=== PATIENT | female | born 1980 | race Two or more races ===

== ENCOUNTER 2016-09-09 16:29 | Emergency (ER) | payer MEDICAID ==
--- NOTE | 2016-09-09 17:26 | EDPHY ---
H & P Time Seen by Provider: 09/09/16 17:24 HPI/ROS: CHIEF COMPLAINT: Body aches, sore throat HISTORY OF PRESENT ILLNESS: This patient is a 36 year old female who presents to the Emergency Department complaining of diffuse body aches and sore throat beginning yesterday. She also complains of headache, mild fever, and mild dry cough. She has been treating her symptoms with ibuprofen without much improvement. She has a history of recurrent strep infections last year and tells me that she feels like she has strep. Her son is currently sick with influenza confirmed by processing mgr and her daughter was recently diagnosed with strep. REVIEW OF SYSTEMS: Constitutional: +fever, +body aches, no chills Eyes: No visual changes ENT: +sore throat Respiratory: +cough, no shortness of breath Cardiac: No chest pain Gastrointestinal: No nausea, no vomiting, no abdominal pain Genitourinary: No hematuria, no dysuria Musculoskeletal: No leg pain or swelling Skin: No rash Neurological: +headache, no numbness, no weakness Psychiatric: No depression Past Medical/Surgical History: Recurrent strep. Social History: Son at bedside. Smoking Status: Never smoked Physical Exam: General Appearance: Alert, no distress Eyes: Pupils equal and round, no conjunctival pallor or injection ENT, Mouth: Mucous membranes moist, pharyngeal erythema Neck: Normal inspection Respiratory: Lungs are clear to auscultation Cardiovascular: Regular rate and rhythm Neurological: A&O, nonfocal, normal gait Skin: Warm and dry, no rash Extremities: normal inspection Psychiatric: Mood and affect normal Constitutional: Initial Vital Signs Temperature (C) 38 C 09/09/16 16:36 Heart Rate 95 09/09/16 16:36 Respiratory Rate 12 09/09/16 16:36 Blood Pressure 132/81 H 09/09/16 16:36 O2 Sat (%) 98 09/09/16 16:36 O2 Delivery Mode Room Air Allergies/Adverse Reactions: No Known Allergies Allergy (Unverified 06/18/11 22:14) Home Medications: Medication Instructions Recorded ESOMEPRAZOLE MAG TRIHYDRATE 40 mg PO DAILY #30 cap 06/19/11 [NEXIUM] Zoloft 50mg (RX) 02/27/14 Cephalexin [Keflex (RX)] 500 mg PO TID #30 cap 03/21/15 Hydrocodone/APAP 5/325 [[place] 1 - 2 each PO Q4-6PRN PRN #20 tab 03/21/15 5/325] Oseltamivir Phosphate [Tamiflu 75 75 mg PO BID #10 cap 09/09/16 mg (RX)] Medical Decision Making ED Course/Re-evaluation: This patient has recent exposure to both influenza and strep. Given this, will proceed with strep screen and flu screen. Strep screen and flu screen are negative. I discussed these results with the patient and my recommendation that we proceed with treatment with Tamiflu. She is agreeable to this, given typical influenza symptoms with recent influenza exposure during an influenza epidemic. She will be discharged home with instructions to follow-up with her PCP in 2-3 days for reevaluation. Differential Diagnosis: Differential diagnosis includes but is not limited to pneumonia, otitis media, peritonsillar abscess, retropharyngeal abscess, meningitis. - Data Points Laboratory Results: 09/09/16 Unknown Group A Strep DNA NEGATIVE (NEGATIVE) Medications Given: Discontinued Medications Ibuprofen (Motrin) 600 mg PO EDNOW ONE Stop: 09/09/16 17:41 Last Admin: 09/09/16 17:48 Dose: 600 mg Departure - Departure Disposition: Home, Routine, Self-Care Clinical Impression: Viral syndrome, Exposure to influenza Condition: Good Instructions: Influenza (ED), Viral Syndrome (ED) Additional Instructions: 1. Your flu screen and strep screen were both negative today. As we discussed, I recommend that you treat your symptoms with Tamiflu as directed in case you do have the flu even though your screen was negative. 2. Alternate Ibuprofen and Tylenol every 4-6 hours as needed for pain and fever. 3. Follow-up with your primary care provider if your symptoms do not improve in the next 2-3 days. 4. Return to the Emergency Department with uncontrollable high fever, severe pain or headache, vomiting, or other serious concerns. Referrals: CASSI,UNKNOWN [Other] - As per Instructions Prescriptions: Oseltamivir Phosphate [Tamiflu 75 mg (RX)] 75 mg PO BID #10 cap Report Scribed for: Sherlyn Lyons Report Scribed by: Yara Torres Date of Report: 09/09/16 Time of Report: 17:25 Physician Review and Approval Statement: 09/09/16 17:25 Portions of this note were transcribed by a medical aides teacher. I personally performed a history, physical exam, medical decision making, and confirmed accuracy of information the transcribed note.
[2016-09-09] MEDS ORDERED: IBUPROFEN 600 MG TAB PO ONE ×2 (17:30→17:40)
[2016-09-09 18:45] VITALS: TEMP 99.5
[2016-09-09 18:46] VITALS: BP 128/72; PULSE 92; RESP 16; O2SAT 96
== END 2016-09-09 18:48 | disposition home or self-care (01) ==
DX: B34.9 Viral infection, unspecified (principal); Z20.828 Contact with and (suspected) exposure to other viral communicable diseases

== ENCOUNTER 2017-01-08 15:02 | Emergency (ER) | payer MEDICAID ==
--- NOTE | 2017-01-08 15:38 | EDPHY ---
H & P Stated Complaint: Feels SOB x 45 mins HPI/ROS: CHIEF COMPLAINT: HISTORY OF PRESENT ILLNESS: REVIEW OF SYSTEMS: A ten point review of systems was performed and is negative with the exception of the items mentioned in the HPI. - Personal History LMP (Females 10-55): Now Current Tetanus Diphtheria and Acellular Pertussis (TDAP): Yes - Medical/Surgical History Hx Asthma: No Hx Chronic Respiratory Disease: No Hx Diabetes: No Hx Cardiac Disease: No Hx Renal Disease: No Hx Cirrhosis: No Hx Alcoholism: No Hx HIV/AIDS: No Hx Splenectomy or Spleen Trauma: No Other PMH: depression, GERD, cholecystectomy, tubes tied - Social History Smoking Status: Never smoked - Physical Exam Exam: General Appearance: Alert. Vital signs reviewed. * Eyes: Pupils equal and round, no conjunctival injection, no discharge. Anicteric. ENT, Mouth: Mucous membranes are moist, no oropharyngeal erythema or edema. Neck: No lymphadenopathy, supple. Respiratory: Lungs are clear to auscultation; no wheezes, rales, or rhonchi. Cardiovascular: Regular rate and rhythm; no murmur, rub, or gallop. Gastrointestinal: Abdomen is soft and nontender, no masses or organomegaly, bowel sounds normal. Skin: Warm and dry, no rashes on exposed skin, normal color. Back: Nontender to palpation over the thoracolumbar spine. No CVAT. Extremities: No lower extremity edema, no calf tenderness or swelling. Neurological: Alert and oriented. Moving all four extremities easily and equally. Cranial nerves II through XII are examined and are intact (visual acuity not tested). Strength is 5 over 5 bilaterally with testing of all major motor groups. Sensation is intact to light touch over all 4 extremities. Deep tendon reflexes are 2+ in the biceps and knees bilaterally. Gait is normal. [id number] is performed accurately. Psychiatric: Normal affect. Constitutional: Initial Vital Signs Heart Rate 82 01/08/17 15:05 Respiratory Rate 18 01/08/17 15:05 Blood Pressure 122/70 H 01/08/17 15:05 O2 Sat (%) 100 01/08/17 15:05 O2 Delivery Mode Room Air Allergies/Adverse Reactions: No Known Allergies Allergy (Verified 01/08/17 15:06) Home Medications: Medication Instructions Recorded NK [No Known Home Meds] 01/08/17 Physician Review and Approval Statement: 01/08/17 15:38 Portions of this note were transcribed by the medical director/head team physician. I, Dr. Malia Campbell, personally performed the history, physical exam, and medical decision- making; and confirmed the accuracy of the information in the transcribed note.
--- NOTE | 2017-01-08 15:43 | CPEKG ---
Heart Rate: 70 RR Interval: 857 P-R Interval: 152 QRSD Interval: 82 QT Interval: 388 QTC Interval: 419 P [place]: 22 QRS [place]: 9 T Wave [place]: 11 EKG Severity - NORMAL ECG - EKG Impression: SINUS RHYTHM Electronically Signed By: Malia Campbell 09-Jan-2017 00:05:00
--- NOTE | 2017-01-08 15:53 | EDPHY ---
H & P Time Seen by Provider: 01/08/17 15:37 HPI/ROS: CHIEF COMPLAINT: Shortness of breath HISTORY OF PRESENT ILLNESS: 36 year old female complaining of shortness of breath and numbness associated with a panic attack onset around 30 minutes ago while watching TV. She felt a sensation of something stuck in her throat, became anxious, developed racing heart and began hyperventilating. Her whole body became numb, and she was shaking. She feels back to normal now. She has had multiple prior similar episodes. These episodes generally last around 15 minutes. She denies feeling anxious prior to onset of symptoms. No chest pain, vomiting, or other associated symptoms. REVIEW OF SYSTEMS: Constitutional: No fever, no chills Eyes: No visual changes ENT: No sore throat Respiratory: No cough Cardiac: No chest pain Gastrointestinal: No nausea, no vomiting, no abdominal pain Genitourinary: no dysuria Musculoskeletal: No leg pain or swelling Skin: No rash Neurological: No headache, no weakness Psychiatric: No depression Past Medical/Surgical History: 1. Depression 2. GERD 3. Cholecystectomy 4. Tubal ligation Social History: Significant other at bedside. Nonsmoker. No alcohol use. Smoking Status: Never smoked Physical Exam: General Appearance: Alert, pleasant Eyes: Pupils equal and round, no conjunctival pallor ENT, Mouth: Mucous membranes moist Neck: Normal inspection Respiratory: Lungs are clear to auscultation Cardiovascular: Regular rate and rhythm Gastrointestinal: Abdomen is soft and non-tender Neurological: A&O, nonfocal, normal gait Skin: Warm and dry, no rash Extremities: Nontender, no pedal edema Psychiatric: Mood and affect normal Constitutional: Initial Vital Signs Heart Rate 82 01/08/17 15:05 Respiratory Rate 18 01/08/17 15:05 Blood Pressure 122/70 H 01/08/17 15:05 O2 Sat (%) 100 01/08/17 15:05 O2 Delivery Mode Room Air Allergies/Adverse Reactions: No Known Allergies Allergy (Verified 01/08/17 15:06) Home Medications: Medication Instructions Recorded NK [No Known Home Meds] 01/08/17 Medical Decision Making - Diagnostics EKG Interpretation: EKG interpreted by me reveals normal sinus rhythm, rate 70, no ST/T changes. Interpretation: normal EKG ED Course/Re-evaluation: This patient presents after a likely panic attack. She is now back to normal. She was placed on a satellite project site monitor to observe for any dysrhythmia. campus monitor revealed normal sinus rhythm throughout. Labs unremarkable. Plan to discharge home in good condition. Follow up and return precautions discussed. Thyroid result pending. She will call back in two hours for these results. The patient is comfortable with this plan. Differential Diagnosis: Differential diagnosis includes but not limited to supraventricular tachycardia , ventricular dysrhythmia, hypoglycemia, thyrotoxicosis. - Data Points Laboratory Results: Laboratory Results 01/08/17 16:10 01/08/17 16:10 Departure - Departure Disposition: Home, Routine, Self-Care Clinical Impression: Panic attack Condition: Good Instructions: Panic Attack (ED) Additional Instructions: 1. Call back in two hours, around 7:00 this evening for results of your thyroid test. 2. If you feel your symptoms beginning, breathe into a paper bag and try to slow down your breathing. 3. Follow up with your primary care provider for symptoms unresolved or continued concerns. 4. Return to the emergency department for severe chest pain, shortness of breath , fainting, vomiting, or other worsening of condition. Referrals: Sean Gonzalez MD [Medical Doctor] - As per Instructions [facility] ,. [Edm Groups for Call Sched] - As per Instructions Report Scribed for: Sherlyn Lyons Report Scribed by: Kayleigh May Date of Report: 01/08/17 Time of Report: 15:51 Physician Review and Approval Statement: 01/08/17 15:51 Portions of this note were transcribed by a medical laboratory specialist. I personally performed a history, physical exam, medical decision making, and confirmed accuracy of information the transcribed note.
[2017-01-08 16:21] LABS: % IMMATURE GRANULYOCYTES 0.2 % (0.0-1.1); ABSOLUTE IMMATURE GRANULOCYTES 0.02 10^3/uL (0.00-0.10); ADD DIFF? NO; ADD MORPH? NO; ADD SCAN? NO; ATYPICAL LYMPHOCYTE FLAG 0 (0-99); FRAGMENT RBC FLAG 0 (0-99); HEMATOCRIT 37.7 % (38.0-47.0); LEFT SHIFT FLG 0 (0-99); LIPEMIA HEMOLYSIS FLAG 90 (0-99); MEAN CELL HEMOGLOBIN 28.6 pg (27.9-34.1); MEAN CELL HEMOGLOBIN CONCENTR. 34.5 g/dL (32.4-36.7); MEAN PLATELET VOLUME 9.2 fL (8.7-11.7); PLATELET CLUMPS FLAG 10 (0-99); PLATELET COUNT 353 10^3/uL (150-400); RED BLOOD CELL COUNT 4.54 10^6/uL (4.18-5.33); RED CELL DISTRIBUTION WIDTH 12.8 % (11.5-15.2)
[2017-01-08 16:33] LABS: ANION GAP 13 mEq/L (8-16); CALCIUM 9.6 mg/dL (8.5-10.4); CARBON DIOXIDE 22 mEq/l (22-31); CHLORIDE 109 mEq/L (97-110); CREATININE 0.7 mg/dL (0.6-1.0); GLOMERULAR FILTRATION RATE > 60; GLUCOSE 101 mg/dL (70-100); SODIUM 144 mEq/L (134-144)
[2017-01-08 17:08] VITALS: BP 120/81; PULSE 56; RESP 18; TEMP 97.3; O2SAT 98
== END 2017-01-08 17:07 | disposition home or self-care (01) ==
DX: F41.0 Panic disorder [episodic paroxysmal anxiety] (principal)

== ENCOUNTER 2017-06-17 21:51 | Emergency (ER) | payer MEDICAID ==
[2017-06-17] MEDS ORDERED: ONDANSETRON 4 MG/2 ML VIAL ONE (21:59)
[2017-06-17] MEDS ORDERED: ONDANSETRON 4 MG/2 ML VIAL IVP ONE (22:05)
[2017-06-17] MEDS ORDERED: NS 1,000 ML IV ONE (22:05)
--- NOTE | 2017-06-17 22:09 | EDPHY ---
H & P Stated Complaint: N & V Time Seen by Provider: 06/17/17 21:59 HPI/ROS: HPI The patient presents with nausea, vomiting, diarrhea which began this morning upon awakening. Symptoms began with nausea and then she developed vomiting. She has had 3-4 episodes of nonbloody nonbilious emesis. Later in the afternoon , she developed diarrhea which has been watery. She has diffuse mild crampy abdominal pain. She has not had a fever. 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 REVIEW OF SYSTEMS Constitutional: No fever, no chills. Eyes: No discharge. ENT: No sore throat. Cardiovascular: No chest pain, no palpitations. Respiratory: No cough, no shortness of breath. Gastrointestinal: See HPI Genitourinary: No hematuria. Musculoskeletal: No back pain. Skin: No rashes. Neurological: No headache. PMHx: History of GERD, status post cholecystectomy Soc Hx: Works at [employer] PHYSICAL General Appearance: Alert, no distress Eyes: Pupils equal and round no pallor or injection ENT, Mouth: Mucous membranes dry Respiratory: There are no retractions, lungs are clear to auscultation Cardiovascular: Regular rate and rhythm Gastrointestinal: Abdomen is soft and non-tender, no masses, bowel sounds normal Neurological: A&O, moves all extremities Skin: Warm and dry, no rashes Musculoskeletal: Neck is supple non tender Extremities: symmetrical, full range of motion Psychiatric: Patient is oriented X 3, there is no agitation Source: Patient Exam Limitations: No limitations - Personal History LMP (Females 10-55): 1-7 Days Ago Current Tetanus/Diphtheria Vaccine: Unsure Current Tetanus Diphtheria and Acellular Pertussis (TDAP): Unsure - Medical/Surgical History Hx Asthma: No Hx Chronic Respiratory Disease: No Hx Diabetes: No Hx Cardiac Disease: No Hx Renal Disease: No Hx Cirrhosis: No Hx Alcoholism: No Hx HIV/AIDS: No Hx Splenectomy or Spleen Trauma: No Other PMH: depression, GERD, cholecystectomy, tubes tied - Social History Smoking Status: Never smoked Constitutional: Initial Vital Signs Temperature (C) 37.7 C 06/17/17 21:54 Heart Rate 109 H 06/17/17 21:54 Respiratory Rate 18 06/17/17 21:54 Blood Pressure 117/77 06/17/17 21:54 O2 Sat (%) 94 06/17/17 21:54 O2 Delivery Mode Room Air Allergies/Adverse Reactions: No Known Allergies Allergy (Verified 01/08/17 15:06) Home Medications: Medication Instructions Recorded NK [No Known Home Meds] 01/08/17 Medical Decision Making Differential Diagnosis: 37-year-old female, status post cholecystectomy, history of GERD who presents from home with nausea, vomiting, diarrhea. Her symptoms have been present for the last 1 day. On exam, she is tachycardic with dry mucous membranes. Abdominal exam is benign. Differential diagnosis includes viral gastroenteritis, toxin mediated enterocolitis, less likely appendicitis. In the emergency department, patient got 1 L of IV fluids and Zofran. Basic labs were checked and were all unremarkable. I suspect she has of viral gastroenteritis. She was able to tolerate p. o. and was discharged with Zofran 0 DT. - Data Points Laboratory Results: Laboratory Results 06/17/17 22:00 06/17/17 22:00 06/17/17 06/17/17 22:00 22:00 WBC 9.76 10^3/uL H 10^3/uL (3.80-9.50) RBC 4.93 10^6/uL 10^6/uL (4.18-5.33) Hgb 14.1 g/dL g/dL (12.6-16.3) Hct 40.3 % % (38.0-47.0) MCV 81.7 fL fL (81.5-99.8) MCH 28.6 pg pg (27.9-34.1) MCHC 35.0 g/dL g/dL (32.4-36.7) RDW 12.8 % % (11.5-15.2) Plt Count 366 10^3/uL 10^3/uL (150-400) MPV 8.8 fL fL (8.7-11.7) Neut % (Auto) 79.2 % H % (39.3-74.2) Lymph % (Auto) 15.9 % % (15.0-45.0) [place] % (Auto) 3.2 % L % (4.5-13.0) Eos % (Auto) 1.0 % % (0.6-7.6) Baso % (Auto) 0.3 % % (0.3-1.7) Nucleat RBC Rel Count 0.0 % % (0.0-0.2) Absolute Neuts (auto) 7.73 10^3/uL H 10^3/uL (1.70-6.50) Absolute Lymphs (auto) 1.55 10^3/uL 10^3/uL (1.00-3.00) Absolute Monos (auto) 0.31 10^3/uL 10^3/uL (0.30-0.80) Absolute Eos (auto) 0.10 10^3/uL 10^3/uL (0.03-0.40) Absolute Basos (auto) 0.03 10^3/uL 10^3/uL (0.02-0.10) Absolute Nucleated RBC 0.00 10^3/uL 10^3/uL (0-0.01) Immature Gran % 0.4 % % (0.0-1.1) Immature Gran # 0.04 10^3/uL 10^3/uL (0.00-0.10) Sodium 139 mEq/L mEq/L (134-144) Potassium 3.9 mEq/L mEq/L (3.5-5.2) Chloride 104 mEq/L mEq/L (97-110) Carbon Dioxide 20 mEq/l L mEq/l (22-31) Anion Gap 15 mEq/L mEq/L (8-16) BUN 12 mg/dL mg/dL (7-23) Creatinine 0.7 mg/dL mg/dL (0.6-1.0) Estimated GFR > 60 Glucose 107 mg/dL H mg/dL (70-100) Calcium 9.1 mg/dL mg/dL (8.5-10.4) Total Bilirubin 0.7 mg/dL mg/dL (0.1-1.4) AST 43 IU/L IU/L (14-46) ALT 61 IU/L H IU/L (9-52) Alkaline Phosphatase 103 IU/L IU/L (38-126) Total Protein 8.0 g/dL g/dL (6.3-8.2) Albumin 4.5 g/dL g/dL (3.5-5.0) Lipase 63 IU/L IU/L (23-300) Medications Given: Discontinued Medications Sodium Chloride (Ns) 1,000 mls @ 0 mls/hr IV ONCE ONE PRN Reason: Wide Open Stop: 06/17/17 22:06 Last Admin: 06/17/17 22:05 Dose: 1,000 mls Ondansetron HCl (Zofran) 4 mg IVP EDNOW ONE Stop: 06/17/17 22:06 Last Admin: 06/17/17 22:05 Dose: 4 mg Departure - Departure Disposition: Home, Routine, Self-Care Clinical Impression: Nausea vomiting and diarrhea Condition: Good Instructions: Gastroenteritis (ED) Additional Instructions: Please try drinking clear liquids until your feeling better. Then you can advance your diet with bland foods. Referrals: DR ZOHAIB [Other] - As per Instructions
[2017-06-17 22:18] LABS: PLATELET COUNT 366 10^3/uL (150-400)
[2017-06-17] MEDS ORDERED: ONDANSETRON 4MG PREPACK#2 BTL TAKEHOME ONE ×2 (23:50→23:51)
[2017-06-18] VITALS: BP 126/73; PULSE 90; RESP 16; TEMP 98.1; O2SAT 97
== END 2017-06-18 | disposition home or self-care (01) ==
DX: R11.2 Nausea with vomiting, unspecified (principal); R19.7 Diarrhea, unspecified; Z90.49 Acquired absence of other specified parts of digestive tract
CPT/HCPCS: 96374; J2405

== ENCOUNTER 2017-08-19 21:56 | Emergency (ER) | payer MEDICAID ==
[2017-08-19 22:03] VITALS: RESP 16; TEMP 98.4; O2SAT 95
--- NOTE | 2017-08-19 22:42 | EDPHY ---
H & P Stated Complaint: L ARMPIT PAIN/R PELVIC PAIN Time Seen by Provider: 08/19/17 22:20 HPI/ROS: HPI The patient presents with left axillary and right inguinal pain which has been present for the last 3 days which is constant though getting progressively worse. The pain is achy in nature, does not radiate. She feels more fatigued and tired than usual over the last 2 days. She did take ibuprofen which helped her symptoms. She denies any rash, any lumps or bumps in the area. She denies any fevers. She has not had any sick contacts. She has no changes to her medications. She has not had any recent travel.. REVIEW OF SYSTEMS Constitutional: No fever, no chills. Eyes: No discharge. ENT: No sore throat. Cardiovascular: No chest pain, no palpitations. Respiratory: No cough, no shortness of breath. Gastrointestinal: No abdominal pain, no vomiting. Genitourinary: No hematuria. Musculoskeletal: No back pain. Skin: No rashes. Neurological: No headache. PMHx: GERD on a PPI Soc Hx: Lives at home with her family PHYSICAL General Appearance: Alert, no distress Eyes: Pupils equal and round no pallor or injection ENT, Mouth: Mucous membranes moist Respiratory: There are no retractions, lungs are clear to auscultation Cardiovascular: Regular rate and rhythm Gastrointestinal: Abdomen is soft and non-tender, no masses, bowel sounds normal Neurological: A&O, moves all extremities Skin: Warm and dry, no rashes, no skin changes of her axilla or groin region, there is no palpable axillary or inguinal lymphadenopathy, there is tenderness to palpation of her left lateral chest wall and left axilla as well as right inguinal ligament Musculoskeletal: Neck is supple non tender Extremities: symmetrical, full range of motion Psychiatric: Patient is oriented X 3, there is no agitation Source: Patient Exam Limitations: No limitations - Personal History LMP (Females 10-55): 8-14 Days Ago Current Tetanus Diphtheria and Acellular Pertussis (TDAP): Yes - Medical/Surgical History Hx Asthma: No Hx Chronic Respiratory Disease: No Hx Diabetes: No Hx Cardiac Disease: No Hx Renal Disease: No Hx Cirrhosis: No Hx Alcoholism: No Hx HIV/AIDS: No Hx Splenectomy or Spleen Trauma: No Other PMH: depression, GERD, cholecystectomy, tubes tied - Social History Smoking Status: Never smoked Constitutional: Initial Vital Signs Temperature (C) 36.9 C 08/19/17 22:01 Heart Rate 85 08/19/17 22:01 Respiratory Rate 16 08/19/17 22:01 Blood Pressure 117/84 H 08/19/17 22:01 O2 Sat (%) 95 08/19/17 22:01 O2 Delivery Mode Room Air Allergies/Adverse Reactions: No Known Allergies Allergy (Verified 01/08/17 15:06) Home Medications: Medication Instructions Recorded Acid Green Chain Off Bearer 08/19/17 Medical Decision Making - Diagnostics Imaging Results: Imaging Impressions Chest X-Ray 08/19/17 22:39 Impression: Normal. No source for left axillary pain identified. Differential Diagnosis: 37-year-old healthy female presents with 3 days of left axillary and right groin pain. These areas are very tender to her. On exam, I do not appreciate any lymphadenopathy, she is somewhat obese making it difficult to completely be able palpate. She does not have any signs of folliculitis though she does shave these areas. There is no other rash present indicate cellulitis or abscess formation. The cause of her symptoms is not entirely clear. I plan to order basic labs and a chest x-ray. Labs were unremarkable, chest x-ray was normal. I am less suspicious for infectious cause or malignancy as source of her symptoms. I have advised her to take ibuprofen. She is to follow up with Derrick in 2 days. - Data Points Laboratory Results: Laboratory Results 08/19/17 23:20 08/19/17 22:55 08/19/17 08/19/17 08/19/17 23:20 22:55 22:55 WBC 9.64 10^3/uL H 10^3/uL REJ (3.80-9.50) RBC 4.48 10^6/uL 10^6/uL REJ (4.18-5.33) Hgb 12.5 g/dL L g/dL REJ (12.6-16.3) Hct 37.4 % L % REJ (38.0-47.0) MCV 83.5 fL fL REJ (81.5-99.8) MCH 27.9 pg pg REJ (27.9-34.1) MCHC 33.4 g/dL g/dL REJ (32.4-36.7) RDW 13.0 % % REJ (11.5-15.2) Plt Count 353 10^3/uL 10^3/uL REJ (150-400) MPV 9.0 fL fL REJ (8.7-11.7) Neut % (Auto) 55.2 % % REJ (39.3-74.2) Lymph % (Auto) 38.2 % % REJ (15.0-45.0) [place] % (Auto) 3.8 % L % REJ (4.5-13.0) Eos % (Auto) 2.0 % % REJ (0.6-7.6) Baso % (Auto) 0.5 % % REJ (0.3-1.7) Nucleat RBC Rel Count 0.0 % % REJ (0.0-0.2) Absolute Neuts (auto) 5.32 10^3/uL 10^3/uL REJ (1.70-6.50) Absolute Lymphs (auto) 3.68 10^3/uL H 10^3/uL REJ (1.00-3.00) Absolute Monos (auto) 0.37 10^3/uL 10^3/uL REJ (0.30-0.80) Absolute Eos (auto) 0.19 10^3/uL 10^3/uL REJ (0.03-0.40) Absolute Basos (auto) 0.05 10^3/uL 10^3/uL REJ (0.02-0.10) Absolute Nucleated RBC 0.00 10^3/uL 10^3/uL REJ (0-0.01) Immature Gran % 0.3 % % REJ (0.0-1.1) Immature Gran # 0.03 10^3/uL 10^3/uL REJ (0.00-0.10) Sodium 138 mEq/L mEq/L (135-145) Potassium 4.7 mEq/L mEq/L (3.5-5.2) Chloride 103 mEq/L mEq/L (97-110) Carbon Dioxide 19 mEq/l L mEq/l (22-31) Anion Gap 16 mEq/L mEq/L (8-16) BUN 13 mg/dL mg/dL (7-23) Creatinine 0.7 mg/dL mg/dL (0.6-1.0) Estimated GFR > 60 Glucose 109 mg/dL H mg/dL (70-100) Calcium 9.3 mg/dL mg/dL (8.5-10.4) Total Bilirubin 0.3 mg/dL mg/dL (0.1-1.4) AST 46 IU/L IU/L (14-46) ALT 64 IU/L H IU/L (9-52) Alkaline Phosphatase 81 IU/L IU/L (38-126) Total Protein 8.1 g/dL g/dL (6.3-8.2) Albumin 4.6 g/dL g/dL (3.5-5.0) Departure - Departure Disposition: Home, Routine, Self-Care Clinical Impression: Left axillary pain, Right inguinal pain Condition: Good Instructions: Musculoskeletal Pain (ED) Additional Instructions: The cause of your pain is not clear. You should follow up with Derrick as planned. Referrals: BETH KANG [Primary Care Provider] - As per Instructions
[2017-08-19 23:27] LABS: PLATELET COUNT 353 10^3/uL (150-400)
[2017-08-19 23:43] VITALS: BP 113/74; PULSE 75
== END 2017-08-19 23:44 | disposition home or self-care (01) ==
DX: M79.622 Pain in left upper arm (principal); R10.30 Lower abdominal pain, unspecified

== ENCOUNTER 2018-05-12 17:59 | Emergency (ER) | payer MEDICAID ==
--- NOTE | 2018-05-12 18:49 | EDPHY ---
H & P Stated Complaint: l cp/arm pain arm tingling/numbness today/increases with movement Time Seen by Provider: 05/12/18 18:48 - Personal History LMP (Females 10-55): 1-7 Days Ago Current Tetanus Diphtheria and Acellular Pertussis (TDAP): Yes - Medical/Surgical History Hx Asthma: No Hx Chronic Respiratory Disease: No Hx Diabetes: No Hx Cardiac Disease: No Hx Renal Disease: No Hx Cirrhosis: No Hx Alcoholism: No Hx HIV/AIDS: No Hx Splenectomy or Spleen Trauma: No Other PMH: depression, GERD, cholecystectomy, tubes tied - Social History Smoking Status: Never smoked Constitutional: Initial Vital Signs Temperature (C) 37.2 C 05/12/18 18:16 Heart Rate 72 05/12/18 18:16 Respiratory Rate 18 05/12/18 18:16 Blood Pressure 115/80 05/12/18 18:16 O2 Sat (%) 97 05/12/18 18:16 O2 Delivery Mode Room Air Allergies/Adverse Reactions: No Known Allergies Allergy (Verified 05/12/18 18:15) Home Medications: Medication Instructions Recorded Hydrocodone/APAP 5/325 [[place] 1 - 2 each PO Q4-6PRN PRN #10 tab 05/12/18 5/325] Ibuprofen [Motrin] 800 mg PO Q8 #20 tab 05/12/18 Medical Decision Making ED Course/Re-evaluation: CHIEF COMPLAINT: Left shoulder pain HISTORY OF PRESENT ILLNESS: The patient is a 38 y/o female complaining of left shoulder pain onset this morning. She denies any preceding trauma or other obvious precipitating event. Her pain is localized over her AC joint and associated with occasional tingling down her left arm. She denies chest pain, dyspnea, fever, vomiting, abdominal pain, or other complaints. She has never had this pain before. REVIEW OF SYSTEMS: A comprehensive 10 system review of systems is otherwise negative aside from elements mentioned in the history of present illness and medical decision making. PHYSICAL EXAM: HR, BP, O2 Sat, RR. Temp noted General Appearance: Alert, well hydrated, appropriate, and non-toxic appearing. Head: Atraumatic without scalp tenderness or obvious injury Eyes: Pupils equal, round, reactive to light and accommodation, EOMI, no trauma , no injection. Nose: Atraumatic, no rhinorrhea, clear. Throat: Mucus membranes moist. Neck: Supple, nontender, no lymphadenopathy. Respiratory: No retractions, no distress, no wheezes, and no accessory muscle use. Lungs are clear to auscultation bilaterally. Cardiovascular: Regular rate and rhythm, no murmurs, rubs, or gallops. Good capillary refill all extremities. Gastrointestinal: Abdomen is soft, nontender, non-distended, no masses, no rebound, no guarding, no peritoneal signs. Musculoskeletal: Normal active ROM of all extremities, atraumatic. Tenderness with palpation over left AC joint. Neurological: Alert, appropriate, and interactive. The patient has non-focal cranial nerves, motor, sensory, and cerebellar exam. Skin: No rashes, good turgor, no nodules on palpation. Past medical history: depression, GERD Past surgical history: cholecystectomy, tubal ligation Family history: noncontributory Social history: Lives in [place]. Employed. DIFFERENTIAL DIAGNOSIS: The differential diagnosis for the patient's pain included but was not limited to subAC bursitis, fracture, ligamentous injury, contusion, muscular strain. MEDICAL DECISION MAKING: This is a 38 y/o female who presents with a 1-day history of atraumatic left shoulder pain. She has tenderness over her AC joint with no visible trauma or skin rash. Suspect bursitis. No indication for emergent imaging at this time. Plan for treatment with NSAIDs and [place] and referral to orthopedist for follow up. Return precautions discussed. She is comfortable with this plan. Departure - Departure Disposition: Home, Routine, Self-Care Clinical Impression: Left shoulder pain Qualifiers: Chronicity: acute Qualified Code(s): M25.512 - Pain in left shoulder Condition: Good Instructions: Ibuprofen (By mouth), Hydrocodone (By mouth), Shoulder Pain (ED) Additional Instructions: 1. Take 800mg ibuprofen every 8 hours for pain and inflammation over the next few days. 2. Use [place] as prescribed when needed for severe pain. This medication can make you drowsy and constipated. Do not use prior to driving. 3. Follow up with orthopedist within the next week for reevaluation. 4. Return to the ED for worsening of condition. Referrals: Misael Ellison MD [Medical Doctor] - As per Instructions Prescriptions: Hydrocodone/APAP 5/325 [[place] 5/325] 1 - 2 each PO Q4-6PRN PRN #10 tab PRN Reason: Pain, Moderate Ibuprofen [Motrin] 800 mg PO Q8 #20 tab Report Scribed for: Madan Moya Report Scribed by: Lisa Mora Date of Report: 05/12/18 Time of Report: 19:06
[2018-05-12 19:05] VITALS: BP 108/67
--- NOTE | 2018-05-13 09:23 | CPEKG ---
Test Reason : OPEN Blood Pressure : / mmHG Vent. Rate : 083 BPM Atrial Rate : 086 BPM P-R Int : 150 ms QRS Dur : 086 ms QT Int : 370 ms P-R-T Axes : 041 007 009 degrees QTc Int : 435 ms Sinus rhythm Low voltage, precordial leads Abnormal R-wave progression, early transition LVH by voltage Confirmed by Viktor Kovacs ([id number]) on 05/13/2018 9:23:21 AM Referred By: Confirmed By:Viktor Kovacs
== END 2018-05-12 19:08 | disposition home or self-care (01) ==
DX: M25.512 Pain in left shoulder (principal)